=== PATIENT | male | born 1960 | race Caucasian/White ===

== ENCOUNTER → 2017-09-04 | Outpatient (CLI) | payer OTHER ==
[2017-09-04] MEDS: IOHEXOL 300 MG/ML 100ML VIAL. IV (13:26)
== END | disposition home or self-care (01) ==
LOC: KCIC CT 12:41
DX: R91.8 Other nonspecific abnormal finding of lung field (principal); K44.9 Diaphragmatic hernia without obstruction or gangrene; K76.0 Fatty (change of) liver, not elsewhere classified; N28.1 Cyst of kidney, acquired
CPT/HCPCS: 71260; Q9967

== ENCOUNTER → 2019-11-04 | Outpatient (CLI) | payer OTHER ==
[2016-04-22 09:16] VITALS: BP 108/69
[~2019-11-04] MED LIST: ACET325T9 PO; ASPI-630 PO; ATOR20TA58 PO; CIPR500T94 PO; DOCU-153 PO; GABA600T7 PO; HYDR-2765 PO; HYDR-3164 PO; METH750T2 PO; ONDA4TAB7 PO; PSYL0.5215 PO; PSYL0.5242 PO; TAMS0.4C97 PO
[2019-11-04 14:15] LABS: BASO # 0.1 x10^3/uL (0.0-0.2); BASO % 1 % (0-3); EOS # 0.3 x10^3/uL (0.0-0.7); EOS % 3 % (0-3); HEMOGLOBIN 15.2 g/dL (13.0-17.5); LYMPH % 28 % (24-48); MEAN CORPUSCULAR HEMOGLOBIN 31 pg (25-35); MEAN CORPUSCULAR HGB CONC 34 g/dL (31-37); MEAN CORPUSCULAR VOLUME 93 fL (79-100); MONO # 1.2 x10^3/uL (0.0-1.1); MONO % 11 % (0-9); NEUT % 57 % (31-73); PLATELET COUNT 314 x10^3/uL (140-400); RED BLOOD COUNT 4.86 x10^6/uL (4.30-5.70); RED CELL DISTRIBUTION WIDTH 13.9 % (11.5-14.5); WHITE BLOOD COUNT 10.6 x10^3/uL (4.0-11.0)
[2019-11-04 14:48] LABS: ALBUMIN 4.1 g/dL (3.4-5.0); ALBUMIN/GLOBULIN RATIO 1.1 (1.0-1.7); CALCIUM 9.7 mg/dL (8.5-10.1); GFR 76.5; POTASSIUM 3.9 mmol/L (3.5-5.1); TOTAL BILIRUBIN 1.2 mg/dL (0.2-1.0); TOTAL PROTEIN 7.9 g/dL (6.4-8.2)
== END | disposition home or self-care (01) ==
LOC: SURGPAT 12:37
PROVIDERS: ATTEND Neurological Surgery
DX: Z01.812 Encounter for preprocedural laboratory examination (principal); M47.26 Other spondylosis with radiculopathy, lumbar region; Z88.8 Allergy status to other drugs, medicaments and biological substances
CPT/HCPCS: 36415; 80053; 85025; 87641

== ENCOUNTER 2019-11-11 08:44 | Observation (INO) | payer OTHER ==
--- NOTE | 2019-11-08 12:34 | PREOP HP ---
DATE OF SERVICE: 11/11/2019 PREOPERATIVE HISTORY AND PHYSICAL HISTORY OF PRESENT ILLNESS: The patient is a pleasant 59-year-old man who relates that in August, he was twisting, and lifting a water heater and developed significant low back pain along with weakness in his right leg. He said that he developed right anterior leg numbness and aching sensation in the right anterior thigh. Along with this, he felt weakness in the right anterior thigh. He said that he had to use a cane after that time with walking to prevent him from falling. The pain is in his right hip and leg and he rates it as a 6/10. He is taking [place] 7.5 as needed for pain. He has been unable to work. He said he sees a chiropractor multiple times a week, which does sometimes help. He has had epidural steroid injections, which he said only helped for a couple of hours. PAST MEDICAL HISTORY: Arthritis, kidney stones. PAST SURGICAL HISTORY: He denies any previous surgery. CURRENT MEDICATIONS: Atorvastatin, hydrocodone/acetaminophen, ibuprofen, Tylenol, Metamucil, laxative and hemp seed. FAMILY HISTORY: Cancer, diabetes, heart disease. 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 . Smokes 1 pack per day for 35 years. Drinks alcohol 1-2 times per year. ALLERGIES: ALLERGY TO BEE STINGS. REVIEW OF SYSTEMS: A 12-point review of systems was performed and is noncontributory except that mentioned above. PHYSICAL EXAMINATION: GENERAL: Alert, pleasant, in no acute distress. HEAD: Normocephalic and atraumatic. SKIN: Warm and dry. MUSCULOSKELETAL: Lumbar paraspinal muscle bulk is normal, range of motion of the lumbar spine is restricted, [id number] tenderness of the lower lumbar spine with palpation, normal range of motion of the lower extremities bilaterally. EXTREMITIES: No clubbing, cyanosis or edema. NEUROLOGIC: Alert and oriented x 3, normal recent and remote memory. Strength is 5/5 in the lower extremities except 2/5 right quadriceps strength, sensory was intact to light touch in the lower extremities except for decrease in the right anterior thigh as well as the right anterior lateral leg, reflexes were present and symmetric in the lower extremities except for an absent right knee jerk, there is an abnormal gait using a cane to support his right leg. IMAGING: I reviewed a lumbar MRI scan. On that study, there is disc bulging and moderate foraminal narrowing along with an element of lateral recess narrowing at L4-L5. There is also bilateral foraminal narrowing at L5-S1. ASSESSMENT AND PLAN: Based of his symptoms and the severe right quadriceps weakness, my major concern is that the foraminal narrowing at L4-L5 is responsible for his symptoms. I recommended microsurgery at L4-L5 with transforaminal decompression to see if this will help him. I explained to him that surgery may not be of benefit. I did feel though that it should be done to fully decompress the right L4 nerve root. I discussed the surgery with him and the risk as well as the expected postoperative course. He understands and would like to go ahead. LEESA CISNEROS MD DR: MEGA/mahi JOB#: [id number] / [id number] BILL
[2019-11-11] VITALS (9 sets, daily range): BP systolic 111–138; BP diastolic 64–93
[~2019-11-11] VITALS: Ht 177.8 cm; Wt 94.0 kg
[~2019-11-11 08:44] MED LIST changes: +BACITRACIN 50,000 UNIT in IV NORMAL SALINE 1000ML BAG 1,000 ML IRR ONE; +BUPIVACAINE-EPI 0.5%-1:200000 MPF 30 ML VIAL. ONE; -DOCU-153 PO; +GELATIN SPONGE SIZE 100. ONE; +IV RINGERS,LACTATED 1000ML 1,000 ML IV SCH; +KETOROLAC 60 MG/2 ML VIAL. ONE; +LIDOCAINE 1% PF 2 ML VIAL. ID PRN; -METH750T2 PO; +ONDANSETRON PF 4 MG/2 ML VIAL. IV PRN; +PROCHLORPERAZINE 10 MG/2 ML VIAL. IV PRN; +THROMBIN TOPICAL 20,000 UNIT SPRAY.SYRN KIT TP ONE; +fentaNYL PF VIAL 100 MCG/2 ML VIAL IV PRN
[2019-11-11] MEDS ORDERED: DEXAMETHASONE SOD PHOS 4 MG/ML VIAL ONE (12:35)
[2019-11-11] MEDS ORDERED: LIDOCAINE 2% PF 5 ML VIAL. ONE (12:35)
[2019-11-11] MEDS ORDERED: PROPOFOL 20 ML IV ONE (12:35)
[2019-11-11] MEDS ORDERED: PROPOFOL 0 ML IV ONE (12:35)
[2019-11-11] MEDS ORDERED: MIDAZOLAM HCL/PF 2 MG/2 ML VIAL. ONE (12:35)
[2019-11-11] MEDS ORDERED: ONDANSETRON PF 4 MG/2 ML VIAL. ONE (12:35)
[2019-11-11] MEDS ORDERED: PHENYLEPHRINE 10 MG/ML VIAL. ONE (12:35)
[2019-11-11] MEDS ORDERED: REMIFENTANIL 2 MG VIAL. IV ONE (12:37)
[2019-11-11] MEDS ORDERED: SUCCINYLCHOLINE 200 MG/10 ML VIAL. ONE (12:44)
[2019-11-11] MEDS ORDERED: PROPOFOL 50 ML IV ONE ×2 (13:54→15:49)
[2019-11-11] MEDS ORDERED: DESFLURANE > 120 MINUTES IH ONE (13:55)
[2019-11-11] MEDS ORDERED: fentaNYL PF VIAL 100 MCG/2 ML VIAL ONE (16:07)
[2019-11-11] MEDS ORDERED: POTASSIUM CL 20MEQ D5-0.45NACL 1,000 ML IV SCH (16:14)
[2019-11-11] MEDS ORDERED: diphenhydrAMINE HCL 25 MG CAPSULE PO PRN (16:15)
[2019-11-11] MEDS ORDERED: ACETAMINOPHEN 325 MG TABLET. PO PRN ×2 (16:15)
[2019-11-11] MEDS ORDERED: fentaNYL PF VIAL 100 MCG/2 ML VIAL IVP PRN (16:15)
[2019-11-11] MEDS ORDERED: PSYLLIUM HUSK 0.52 GM PO PRN (16:15)
[2019-11-11] MEDS ORDERED: MAGNESIUM HYDROXIDE 2,400 MG/30 ML ORAL.SUSP. PO PRN (16:15)
[2019-11-11] MEDS ORDERED: METHOCARBAMOL 750 MG TABLET PO PRN (16:15)
[2019-11-11] MEDS ORDERED: 0.9 % SODIUM CHLORIDE 10 ML DISP.SYRIN. IV PRN (16:15)
[2019-11-11] MEDS ORDERED: CALCIUM CARBONATE 500 MG TAB.CHEW PO PRN (16:15)
[2019-11-11] MEDS ORDERED: NALOXONE 0.4 MG/ML VIAL. IV PRN (16:15)
[2019-11-11] MEDS ORDERED: ONDANSETRON PF 4 MG/2 ML VIAL. IVP PRN (16:15)
[2019-11-11] MEDS ORDERED: MAG HYDROX/ALUMINUM HYD/SIMETH 30 ML ORAL.SUSP PO PRN (16:15)
[2019-11-11] MEDS ORDERED: ATORVASTATIN CALCIUM 20 MG TABLET PO SCH (21:00)
[2019-11-11] MEDS: GABAPENTIN 300 MG CAPSULE. PO SCH (21:14)
[2019-11-11] MEDS: DOCUSATE SODIUM 100 MG CAPSULE. PO SCH (21:14)
[2019-11-11] MEDS: HYDROcodone/APAP 7.5/325MG 1 TAB TABLET PO PRN (21:26)
[2019-11-12 03:00] VITALS: BP 136/88
[2019-11-12] MEDS: HYDROcodone/APAP 7.5/325MG 1 TAB TABLET PO PRN ×2 (03:44→09:21)
--- NOTE | 2019-11-12 03:45 | NUR ---
Lortab given for c/o right groin/quad pain.
[2019-11-12] MEDS ORDERED: PSYLLIUM HUSK (SUGAR FREE) 1 PKT PACKET PO PRN (09:00)
[2019-11-12] MEDS ORDERED: ASPIRIN CHEWABLE 81 MG TABLET. PO SCH (09:00)
[2019-11-12] MEDS: GABAPENTIN 300 MG CAPSULE. PO SCH (09:12)
[2019-11-12] MEDS: DOCUSATE SODIUM 100 MG CAPSULE. PO SCH (09:12)
[2019-11-12 11:00] VITALS: BP 126/94
--- NOTE | 2019-11-12 11:16 | NUR ---
SW following. Discussed with RN, pt from home. RN advised no SW needs and anticipates discharge home today with self care. SW will continue to follow, should any discharge planning needs arise.
[2019-11-12] MEDS ORDERED: METH750T2 PO (12:20)
[2019-11-12] MEDS ORDERED: DOCU-153 PO (12:20)
--- NOTE | 2019-11-12 12:22 | DISCH ---
DISCHARGE INSTRUCTIONS Condition on Discharge Condition on Discharge: Stable Activity After Discharge Activity Instructions for Disc: Activity as tolerated, Avoid exertion Other activity instructions: no driving for a week Bathing Instructions: Shower-keep dressing dry Lifting Instructions after Dis: No heavy lifting, No pulling or pushing, Do not lift >10 pounds Diet after Discharge Additional Diet Restrictions: resume home diet Wound Incision Care Wound/Incision Care: Ice to area for comfort Other wound/incision instructi: may remove dressing in 48 hours if dry then may shower, no soaking Contacting the after DC Call your doctor for: Concerns you may have Follow-Up Follow up with: Dr. Cisneros's nurse in 2 weeks [phone] LEESA CISNEROS MD Nov 12, 2019 12:22
--- NOTE | 2019-11-12 13:17 | OP ---
DATE OF SURGERY: 11/11/2019 PREOPERATIVE DIAGNOSES: Foraminal disc herniation L4-L5 right with severe right L4 radiculopathy. POSTOPERATIVE DIAGNOSES: Foraminal disc herniation and posterolateral disc herniation L4-L5 right with severe right L4 radiculopathy. OPERATION PERFORMED: Hemilaminotomy L4-L5 and transfacet exposure L4-L5 with removal of paracentral disc herniation L4-L5 right as well as foraminal disc herniation L4-L5 right. The operation was done with EMG monitoring, SSEP monitoring, fluoroscopy, microscopic dissection. SURGEON: Bob Cisneros M.D. POLE LIFT OPERATOR: CUAUHTEMOC Kenyon assisted with the surgery. She assisted with the exposure, the microdecompression, microdiscectomy as well as the closure. OPERATIVE INDICATIONS: The patient is a pleasant 59-year-old man who developed intractable back and right leg pain along with significant weakness in his right quadriceps. He had epidural steroid injections, which did not help him. He was found to have the above-mentioned findings on imaging studies and I recommended surgery. He understood the surgery and the risks. He also understood that this may not help him with his significant right quadriceps weakness. DESCRIPTION OF PROCEDURE: Following general endotracheal anesthesia, the patient was positioned prone on the Harvey table. Lumbar region prepped and draped in standard fashion. ESEQUIEL hose and AV impulse boots were applied for DVT prophylaxis. The microscope was draped. Fluoroscopy was draped and brought into field. Monitoring established. Ancef 2 grams was given less than 1 hour prior to initiation of the surgery. Using fluoroscopic guidance, incision was made over the L4-L5 interspace. I dissected down through the skin and subcutaneous tissue, reflected the paraspinal muscles widely exposing the lamina and the facet at L4-L5. I brought in the microscope at this point, I drilled down a generous hemilaminotomy and then drilled the bone laterally exposing Kambin's triangle and then working farther laterally following the L4 root, which I worked superiorly and identified, the root was pushed up against the pedicle of L4 and was markedly compressed. I incised the ligament and annulus and Kambin's triangle and then began to perform a discectomy. I then worked laterally and teased back and removed multiple small disc fragments and as I worked, the root moved inferiorly and became well decompressed. I then felt that there was some disc more medially compressing the L5 root and I performed a partial foraminotomy and gently retracted the root at that location and was able to tease back and remove disc material from beneath the root and slightly lateral to the root. At this point, then I had an excellent decompression throughout. I irrigated copiously with antibiotic solution. I explored carefully. There was no evidence of retained fragments. The roots were very free. I irrigated, removed the retractor, obtained hemostasis in the muscle and I closed the wound in layers with absorbable suture. The skin was closed with 4-0 subcuticular stitch. I felt the surgery went very well. BOB CISNEROS MD DR: ABIEL/mahi JOB#: [id number] / [id number] BILL
--- NOTE | 2019-11-12 14:10 | NUR ---
Discharge instructions given with prescription and extra dressings given. Answered questions and concerns. Verbalized understanding. Pt discharged home. Picked up by spouse.
== END 2019-11-12 14:10 | disposition home or self-care (01) ==
LOC: SURG 08:44 → 4 NORTH 17:10
PROVIDERS: ADMIT Neurological Surgery; ATTEND Neurological Surgery
DX: M54.16 Radiculopathy, lumbar region (principal); M19.90 Unspecified osteoarthritis, unspecified site; F17.200 Nicotine dependence, unspecified, uncomplicated; Z87.442 Personal history of urinary calculi
CPT/HCPCS: 63045; 63048; 76000; 97162; G0378; G0379; J0330; J0696; J1100; J1885; J2250; J2370; J2405; J2704; J3010; J3490; J7030; J7120